=== PATIENT | female | born 1985 | race Caucasian/White ===

== ENCOUNTER 2025-07-02 23:11 | Emergency (ER) | payer BC, SELFPAY ==
[2025-07-02 23:13] VITALS: BP 128/90
[2025-07-02 23:54] LABS: Urine Character Cloudy (Clear)
[2025-07-03 00:10] LABS: Urine Red Blood Cell >100 /HPF (0-2)
[2025-07-03 00:11] LABS: Urine White Cell 80-90 /HPF (0-5)
--- NOTE | 2025-07-03 00:28 | ED.GENMED ---
History of Present Illness
General
Chief Complaint: Female [place]/Gu symptoms
Source: patient
Exam Limitations: none
Time Seen by Provider: 07/02/25 23:49
Nursing documentation reviewed up to this point in time: agreed with
History of Present Illness
History of Present Illness:
The patient is a 40-year-old female presenting with symptoms indicative of a urinary tract infection that began today. She reports experiencing burning during urination and increased urgency since this afternoon. This is not her first occurrence;
she has history of previous UTIs perhaps once or twice a year with last occurrence 1 year ago. The patient is also experiencing some abdominal discomfort but denies any fever or significant back pain.
The patient believes she had a miscarriage four days ago at approximately five weeks of . Last menstrual period May 19, 2025. She reports ongoing bleeding, which is heavy and accompanied by lower abdominal cramping. Abdominal cramping
is primarily suprapubic and right lower quadrant. The patient has been observing passing clots and occasional tissue that could possibly be membrane remnants. She expresses uncertainty whether the current urinary symptoms are related to
post-miscarriage complications.
She had an elective, medical last August at 7 weeks gestation. No complications.
She has been in touch with her supervising nurse regarding her miscarriage. She has not yet had an appointment with her supervising nurse.
She takes no medicines on a daily basis.
2 para 0
Past History
Past History
ED Past Medical History: Other (Urticaria)
ED Past Surgical History: Gynecological (Medication assisted elective AB August 2024)
Social History
Drug: Marijuana
Personal: Single
Living: with family
Employment: Employed
Family History
Family History: Other (Noncontributory)
Phy Exam
Physical Exam
Physical Exam:
GENERAL: 40-year-old female appears her stated age, bright and alert, pleasant, appears in no acute distress. Significant other accompanying.
EYE: anicteric
NECK: Supple, nontender, no meningismus, no significant adenopathy.
ENT: oral mucosa is moist. No rhinorrhea.
CARDIAC: Regular rate and rhythm. no murmur.
LUNGS: Clear breath sounds bilaterally, no acute respiratory distress, no wheezes/rales/rhonchi
ABDOMEN: Soft, nondistended, minimal tenderness right lower quadrant with deep palpation only, no r/g, no cvat. normoactive BS. No palpable masses. Scant blood noted on jose-pad.
NEUROLOGICAL: Alert and oriented x3, no focal neuro deficits.
SKIN: Warm and dry, normal color, skin intact. No rash.
MUSCULOSKELETAL: No C/C/E. peripheral pulses are full and equal b/l. No palpable tenderness.
PSYCH: Normal and appropriate interaction.
Sepsis
Sepsis Screening
Sepsis Assessment: Sepsis Ruled Out
Sepsis Screen
Sepsis Screen: Sepsis Ruled Out
Date: 07/03/25
Time: 05:52
Course
Orders/Labs/Results
Orders:
Orders
07/02/25 23:48
Urinalysis Reflex To Culture Urgent
Date Specimen was Collected: 07/02/25
Time Specimen was Collected: 23:47
Urine Microscopic Reflex Cult Urgent
Urine Culture Urgent
LIANG Source: U
Specimen Description:
Date Specimen was Collected: 07/02/25
Time Specimen was Collected: 23:47
07/03/25 00:19
US Pelvis W Transvag Combined Urgent
Comment:
Reason For Exam: LMP 05/19. heavy bleeding, cramping x 4d
07/03/25 00:21
0.9% Sodium Chloride 1000 ml [Nss] 1,000 ml IV BOLUS
07/03/25 00:30
Blood Group&Type Urgent
Basic Metabolic Panel Urgent
Beta HCG Quantitative Urgent
Is this a screen?: No
Complete Blood Count/With Diff Urgent
07/03/25 01:32
CefTRIAXone [Rocephin] 1,000 mg IV NOW STA
Abnormal Lab Results
07/02/25 07/03/25
23:48 00:30
WBC 12.7 H 10^3/uL
(4.8-10.8)
RBC 3.96 L 10^6/uL
(4.20-5.40)
Hgb 11.7 L g/dL
(12.0-16.0)
Hct 33.8 L %
(37.0-47.0)
Absolute Neuts (auto) 9.1 H 10^3/uL
(1.4-6.5)
Chloride 109 H mmol/L
(98-107)
Glucose 102 H mg/dl
(70-99)
Ur Occult Blood Reflex 4+ A
(Negative)
Urine Nitrite (Reflex) Positive A
(Negative)
Leukocyte Esterase Rfl 3+ A
(Negative)
Urine RBC >100 A /HPF
(0-2)
Urine WBC (Reflex) 80-90 A /HPF
(0-5)
Urine Bacteria (Reflex) Many A
(Negative)
Urine Albumin (Reflex) 2+ A
(Neg - Trace)
07/03/25 00:30
07/03/25 00:30
Vital Signs
Initial and Last Documented VS:
Initial Vital Signs
Temp Pulse Resp BP Pulse Ox
97.7 F 102 20 128/90 100
07/02/25 23:13 07/02/25 23:13 07/02/25 23:13 07/02/25 23:13 07/02/25 23:13
Last Documented Vital Signs
Temp Pulse Resp BP Pulse Ox
98.2 F 91 16 127/91 98
07/03/25 03:05 07/03/25 03:05 07/03/25 03:05 07/03/25 03:05 07/03/25 03:05
MDM/Problems Addressed
Differential Diagnosis Includes:
The Differential Diagnosis includes, in no particular order and is not limited to:
- Urinary tract infection
- Retained products of conception
- Post-miscarriage bleeding
- Ovarian torsion
- Ectopic
- Subchorionic bleeding
- Pelvic inflammatory disease
- Endometritis
- Cervicitis
- Bladder spasms
- Urinary retention
MDM/Problems Addressed:
Acute Problems:
- Suspected urinary tract infection.
- Heavy bleeding post-miscarriage.
Plan:
Urinalysis is pending. Will check labs including quantitative hCG, type and Rh.
Order a pelvic ultrasound to assess the presence of clots or retained products of conception and evaluate ovarian health, particularly to confirm if the was intrauterine.
Educate the patient on the importance of Rh status and the potential need for RhoGAM in future pregnancies.
Monitor bleeding and provide symptomatic relief for urinary discomfort.
*Radiology
Radiology exam reviewed: radiology read reviewed (Ultrasound shows no visible IUP. No adnexal masses nor free fluid. Trace fluid in the endometrial cavity. No evidence of intrauterine clot nor retained products. There is debris in the urinary
bladder that may indicate cystitis. Bilateral ureteral jets are noted.)
*Pulse Oximetry
SaO2: 100
Oxygen Mode of Delivery: Room air
Patient hypoxic: no
*Critical Care Note
Total Time (30-74mins, 75-104mins- exclusive of procedures): Not Applicable
Update Note
Update Note:
02:40
Urinalysis consistent with UTI showing many bacteria, 80-90 WBCs, nitrate positive.
Labs reveal mildly elevated white blood cell count of 12.7, very mild anemia with hemoglobin of 11.7. BMP within normal limits.
hCG 936.
Type and Rh a positive.
Ultrasound shows no visible intrauterine gestational sac. No adnexal masses nor free fluid. Trace fluid in the endometrial cavity with endometrial thickness of 9 mm. No evidence of intrauterine clot nor retained products. This is likely a
completed miscarriage, especially in light of the low hCG of only 900.
Patient remains well in appearance and no significant vaginal bleeding noted.
She has been given an IV dose of Rocephin for UTI and will discharge to home with a 5-day course of Macrobid for UTI.
Discussed importance of pelvic rest along with prompt follow-up with her supervising nurse for recheck and serial hCGs.
Return precautions discussed.
ED Attending Note
-
Portions of this chart may have been created with voice recognition software.� Occasional wrong word or��sound alike� substitutions may have occurred due to the inherent limitations of voice recognition software.
Discharge Plan
Departure
Patient Disposition: Home (Routine Discharge)
Date of Disposition: 07/03/25
Time of Disposition: 02:41
Patient with high blood pressure during this ER visit?: No
Condition: Good
Discharge Problem:
Acute cystitis, Spontaneous miscarriage
Instructions: Urinary Tract Infection, Adult (DC), loss - ED (DC)
Prescriptions:
New
nitrofurantoin monohyd/m-cryst [Macrobid] 100 mg capsule
100 mg PO BID 5 Days Qty: 10 0RF
Referrals:
Elmer Colvin MD [Family Provider, Internal Medicine]
Activity Restrictions/Additional Instructions:
Follow-up with your supervising nurse this week or early next week for recheck.
You will need follow-up hCG to ensure continued decline.
Interventions
Interventions:
*Risk Screen - Suicide Last Done: 07/02/25 23:13
*General Assessment Last Done: 07/03/25 01:42
*Neglect/Abuse Screening Last Done: 07/02/25 23:13
*ED- Fall Risk Assessment Last Done: 07/03/25 01:42
*ED COVID-19 Vaccine History Last Done: 07/03/25 01:42
*Nursing Disposition Last Done: 07/03/25 03:05
ED-Female Genitourinary Assessment Last Done: 07/02/25 23:30
Discharge Date and Time
Discharge Date/Time: 07/03/25 03:07
Print Language: GERMAN
[2025-07-03] MEDS: NSS 1000 IV (00:31)
[2025-07-03 00:47] LABS: Hematocrit 33.8 % (37.0-47.0); Hemoglobin 11.7 g/dL (12.0-16.0); Mean Corp Hgb Conc. 34.6 g/dL (33.0-37.0); Mean Corpuscular Volume 85.4 fL (81.0-99.0); Nucleated Red Blood Cells % 0 %; Platelet Count 304 10^3/uL (130-400); Red Cell Dist. Width 12.6 % (11.5-14.5)
[2025-07-03 01:10] LABS: Blood Urea Nitrogen 14 mg/dl (7-17); Calcium 9.1 mg/dl (8.4-10.2); Carbon Dioxide 25 mmol/L (22-30); Chloride 109 mmol/L (98-107); Glucose 102 mg/dl (70-99); Potassium 4.1 mmol/L (3.5-5.1); Sodium 138 mmol/L (135-145); eGFR > 60.00
[2025-07-03 01:28] LABS: Beta HCG Quantitative 936.58 mIU/ml
[2025-07-03] MEDS: ROCEPHIN 1000 MG IV (01:39)
[2025-07-03 02:21] VITALS: BP 117/79
[2025-07-03 02:56] VITALS: BP 127/91
[2025-07-03 03:05] VITALS: BP 127/91
== END 2025-07-03 03:07 | disposition home or self-care (01) ==
LOC: EMR 23:11
PROVIDERS: EMERGENCY PHYSICIAN Emergency Medicine; FAMILY PHYSICIAN Internal Medicine
DX: N30.00 Acute cystitis without hematuria (principal); O03.9 Complete or unspecified spontaneous abortion without complication; D64.9 Anemia, unspecified; Z87.440 Personal history of urinary (tract) infections
CPT/HCPCS: 99284; 96374; 96361; 76830; 76856; 80048; 81003; 81015; 84702; 85025; 86900; 86901; 87077; 87086